=== PATIENT | male | born 1945 | race Caucasian/White ===

== ENCOUNTER → 2018-06-20 | Outpatient (CLI) | payer MEDICARE, OTHER ==
--- NOTE | 2018-06-22 09:01 | PE ---
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 Localization and attenuation correction CT scan was also performed. Small field- of-view images obtained through the head and neck. Correlation to prior CT soft tissue neck 05/29/2018 Head and neck: There is hypermetabolic uptake corresponding to patient's abnormal soft tissue mass wh ich shows SUV of 22. Soft tissue mass is present along the right side of the vallecula, posterior to the hyoid bone and extending medial to the thyroid cartilage causing mass effect on the airway approa [place] the arytenoid cartilage posteriorly. Focus of hypermetabolic uptake is present just to the righ t of the mass superficial to the thyroid cartilage and deep to the sternocleidomastoid muscle, anteri or to the right internal jugular and common carotid artery on the right compatible with nonenlarged l ymph node but showing hypermetabolic uptake at approximately SUV 5.9. The mass measures approximately 2.5 cm in greatest AP dimension and shows somewhat infiltrative appearance with poorly defined eleanor ns. Additional nonenlarged node is present anterior to the sternocleidomastoid muscle at the level of the angle of the mandible on the right measuring SUV 10.1, contralateral node along the anterior cer vical chain immediately anterior to the sternocleidomastoid muscle shows SUV of approximately 4. Acti vity near the base of the tongue on the right thought likely to be physiologic which could be confirm ed with direct visualization. CHEST: Some groundglass density is present in the right upper lobe towards the apex greater than on t he left. Somewhat distended proximal thoracic esophagus shows an air-fluid level present. No evident lung mass. Some basilar atelectatic changes are suspected. No pleural or pericardial effusion. Robbins ry artery calcifications are dense. No mediastinal, axillary, or hilar adenopathy. No suspicious hype rmetabolic uptake. Ascending aorta measures 4.1 cm. Pulmonary artery somewhat prominent, correlate fo r possible pulmonary artery hypertension. Abdomen pelvis: Surgical clips present in the midline in the upper abdomen. There are also clips note d near the head of the pancreas artifact. Partially calcified mass is present in the inferior aspect of the right lobe of the liver measuring approximately 4 cm, no suspicious hypermetabolic uptake is a ssociated. There is no retroperitoneal adenopathy. Dependent high density in the gallbladder compatib le with gallstones. Aorta shows atheromatous change. Postop changes are noted to the bowel. Osseous structures are within normal limits for patient's age. Degenerative disc changes are present in the lower lumbar spine, there is associated facet arthropathy. No suspicious hypermetabolic uptake . Degenerative disc disease, facet arthropathy noted in the cervical spine, there is multilevel darian inal encroachment. IMPRESSION: Findings compatible with patient's history of head and neck carcinoma as described. Indet erminate groundglass opacity noted in the right upper lobe, consider pneumonitis, alveolitis. Indeter minate calcified lesion in the right lobe of the liver shows no associated hypermetabolic uptake. Cho lelithiasis.
== END | disposition home or self-care (01) ==
LOC: RADPETMAIN 12:21
PROVIDERS: ATTEND Radiology Diagnostic Radiology
DX: C32.1 Malignant neoplasm of supraglottis (principal); K80.20 Calculus of gallbladder without cholecystitis without obstruction
CPT/HCPCS: 78815; A9552

== ENCOUNTER 2018-07-03 06:43 | Day surgery (SDC) | payer MEDICARE, OTHER ==
[2018-07-01 14:49] VITALS: BMI 27.6
[~2018-07-03 06:43] MED LIST: LACTATED RINGERS 1,000 ML IV SCH; LIDOCAINE 1% 20 ML VIAL (10MG/ML) FOR IV START INTRADERMA PRN; MIDAZOLAM (PF) 2 MG/2 ML VIAL IV PRN
[2018-07-03] MEDS ORDERED: ceFAZolin 1,000 MG in DEXTROSE/WATER 1 50ML.BAG IVPB STA (07:33)
[2018-07-03 07:45] VITALS: TEMP 98.3
[2018-07-03 07:45] LABS: Glucose,Whole Blood 90 mg/dL (75-99)
[2018-07-03] MEDS ORDERED: PROPOFOL 10 MG/ML 20 ML VIAL IV ONE (08:15)
[2018-07-03] MEDS ORDERED: LIDOCAINE 1% INJ 10MG/ML (20 ML MDV) ONE (08:15)
--- NOTE | 2018-07-03 08:41 | P.PCN ---
Date of Procedure: 07/03/18 Procedure(s) Performed: Brief history: Patient is a 72-year-old pleasant white male, scheduled for an EGD with PEG tube placement today. He was diagnosed with head and neck cancer 2 weeks ago and undergoing chemoradiation therapy that was started 3 days ago. Because of the dysphagia is still for an upper endoscopy with a PEG tube placement today Procedure performed: EGD with PEG tube placement Preoperative diagnosis: IV sedation by anesthesia Procedure: After informed consent was obtained with the patient as well as the family the patient was brought into the endoscopy unit. IV conscious sedation was administered by anesthesia under continuous monitoring. The Olympus GF 160 video endoscope was inserted into the mouth and esophagus intubated without any difficulty and was gradually advanced to the stomach and duodenum. The bulb and second part of the duodenum was visualized which appeared normal. The scope at this time was withdrawn to the stomach adequately insufflated with air. Adequate transillumination was achieved onto the anterior abdominal wall. At the site of adequate transillumination and maximal finger indentation, on the anterior abdominal wall, this area was sterilely prepped and draped. One percent Xylocaine was infiltrated into the skin and a small incision was made. Trocar and cannula was passed through the incision into the stomach cavity. The trocar was removed. Guidewire was passed through the cannula into the stomach cavity which was held by the snare that was passed through the scope. The guidewire along with the scope was gently withdrawn from the stomach esophagus out of the mouth. A 20-[employer] PEG tube was passed over the guidewire and was gently advanced into the mouth and esophagus and stomach. With gentle traction the guidewire along with the PEG tube was pulled from the anterior abdominal wall until the internal bumper appeared to be in secure position. Repeat EGD was performed and the esophagus intubated without any difficulty and was advanced into the stomach. The internal bumper appeared to be in secure position. The visualized portions of the antrum body cardia and fundus of the stomach appeared normal. The esophagus was carefully examined as the scope was gradually being withdrawn which appeared normal. At this time external bumper was placed on the PEG tube closer to the anterior abdominal wall at 3 cm eveline. The patient tolerated the procedure well. Impression: Successful 20[employer] PEG tube placement as described above. Recommendations: Findings of this examination were discussed with the patient's family. The patient will be started on tube feeds tomorrow. Post-PEG tube orders were written. He can be discharged home after recovery. Diet to consult has been placed.
[2018-07-03 09:11] VITALS: BP 126/81; PULSE 84; RESP 16
== END 2018-07-03 10:44 | disposition home or self-care (01) ==
LOC: ORWHC2ENDO 06:43
PROVIDERS: ATTEND Internal Medicine Gastroenterology
DX: R13.10 Dysphagia, unspecified (principal); I10 Essential (primary) hypertension; C76.0 Malignant neoplasm of head, face and neck; E78.5 Hyperlipidemia, unspecified; Z79.82 Long term (current) use of aspirin; Z79.891 Long term (current) use of opiate analgesic; Z79.899 Other long term (current) drug therapy; F17.200 Nicotine dependence, unspecified, uncomplicated
CPT/HCPCS: 43246; J2001; J0690; J2704; B4087

== ENCOUNTER → 2018-11-13 | Outpatient (CLI) | payer MEDICARE ==
--- NOTE | 2018-11-15 12:37 | PE ---
Nuclear medicine PET/CT HISTORY: Malignant neoplasm of head and neck, throat, subsequent Patient received 13.8 mCi F-18 FDG intravenously in delayed scanning performed from the skull base to the mid thighs. Small [id number] images also obtained through the head and neck. Correlation to prior PET/CT 06/20/2018 Head and Neck: The hypermetabolic uptake seen on prior exam is less extensive within the soft tissues of the neck involving the region of the vallecula, portion of the right epiglottis and piriform sinu s, SUV 11.5. The adenopathy in associated hypermetabolic uptake present on previous exam in the right neck is no longer seen. There is uptake seen within the hard palate and soft tissues of the mouth wh ich is more intense and may be due to posttreatment change. There is a lymph node which is not enlarg ed just deep to the sternocleidomastoid muscle on the left at the level of the hyoid bone which show some hypermetabolic uptake, SUV is 5.3. Similar finding was noted on prior exam however SUV in the le ft-sided node is only 4. CHEST: There is no evident lung mass. The groundglass opacity seen on prior exam has improved in the right upper lobe. No pleural or pericardial effusion. Coronary artery calcifications are dense. No me diastinal, axillary, or hilar adenopathy. Small focus of increased uptake present just posterior to t he coretta may be associated with the esophagus and is possibly physiologic, was not seen on prior exa m, SUV 3.3. ABDOMEN: No interval change. Postop changes are present. Multiple gallstones are noted. Calcified foc us in the inferior right lobe of the liver is present. There is a PEG tube in place. No suspicious hy permetabolic uptake. Urinary bladder shows a thickened wall and is not distended. Postop changes are noted to the colon. Prostate shows calcifications. No pelvic adenopathy or suspicious hypermetabolic uptake. Osseous structures: No significant interval change. No suspicious hypermetabolic uptake. IMPRESSION: There is improvement in the distribution and intensity of uptake seen in the patient's ma ss likely due to treatment change. Interval left-sided neck dinora uptake as described and additional findings within the chest.
== END | disposition home or self-care (01) ==
LOC: RADPETMAIN 15:22
PROVIDERS: ATTEND Radiology Diagnostic Radiology
DX: R94.8 Abnormal results of function studies of other organs and systems (principal); C76.0 Malignant neoplasm of head, face and neck
CPT/HCPCS: 78815; A9552

== ENCOUNTER → 2018-12-22 | Outpatient (CLI) | payer MEDICARE ==
[2018-12-22 17:21] LABS: Blood Urea Nitrogen 14 mg/dL (9-20)
--- NOTE | 2018-12-22 22:22 | CT ---
EXAMINATION TYPE: CT soft tissue neck w con DATE OF EXAM: 12/22/2018 HISTORY: neck mass, hx of laryngeal ca COMPARISON: CT neck May 29, 2018. PET/CT November 13, 2018. CT DLP: 567 mGycm. Automated Exposure Control for Dose Reduction was Utilized. TECHNIQUE: CT scan of the neck is performed with IV Contrast, patient injected with 100 mL of Isovue 300, axial images are obtained, coronal and sagittal reformatted images are reviewed. FINDINGS: Airway: There is increasing marked thickening of the soft tissue of the hypopharyngeal airway with fi lling of the left piriform sinus now identified and thickening of the right aryepiglottic fold axial image 37 again seen. Concentric thickening inferior to this with small caliber of the hypopharyngeal airway extending into the proximal trachea is identified just below the hyoid bone near level of fals e vocal cords axial image 41 more prominent from recent comparison studies. Airway distal to this is patent. Parotid/submandibular glands: No gross abnormality seen. Carotid/Vascular Structures: [id number] plaque at bilateral carotid bulbs is redemonstrated. Osseous Structures: There is straightening of spine with moderate disc space narrowing C4-C5 through C6/C7 levels with mild spurring present. Other: There is enlarging left sided neck lymph node from recent PET CT where it was hypermetabolic a xial image 32 now measuring 10 x 10 mm at level of carotid bifurcation. No additional suspicious grea ter than 1 cm lymph nodes are seen. IMPRESSION: Interval neoplastic progression from most recent PET/CT with worsening primary mass likel y bilateral involvement and worsening left-sided neck adenopathy.
== END | disposition home or self-care (01) ==
LOC: RADCTMAIN 16:17
PROVIDERS: ATTEND Otolaryngology
DX: C32.1 Malignant neoplasm of supraglottis (principal); Z92.21 Personal history of antineoplastic chemotherapy
CPT/HCPCS: 82565; 84520; 70491; 36415; Q9967

== ENCOUNTER → 2019-01-09 | Outpatient (CLI) | payer MEDICARE, OTHER ==
--- NOTE | 2019-01-11 13:04 | PE ---
Nuclear medicine PET/CT HISTORY: Supraglottic laryngeal carcinoma, had neck cancer, subsequent Patient received 12.4 mCi F-18 FDG intravenously in delayed scanning was performed from the skull bas e to the mid thighs. Small [id number] images obtained through the neck. Correlation with prior nuc lear medicine PET/CT 11/13/2018, CT soft tissue neck 12/22/2018 Neck and chest: Abnormal hypermetabolic uptake is again noted within the region of the epiglottis, va llecula, right piriform sinus region, SUV is 12.7. The area of abnormal hypermetabolic uptake has pro gressed somewhat in the interval. Additionally the solitary lymph node showing hypermetabolic uptake on prior exam due to the left sternocleidomastoid muscle at the level of the carotid bifurcation on t he left has increased in size and shows a short axis measurement of approximately 11 mm on current ex am is compared to previous exam when it measured 7-8 mm., SUV 12.1 There is no evident lung mass. There is no pleural pericardial effusion. Coronary artery calcificatio ns are dense. ABDOMEN: Dependent high density within the gallbladder compatible with stones. Calcified right-sided liver mass is stable. Metallic density present at the level of the head of the pancreas is again seen . There is a PEG tube in place as on prior. No retroperitoneal adenopathy or ascites. Postop changes are noted to the bowel. Osseous structures are unremarkable. IMPRESSION: Some progression in patient's left neck adenopathy, area of abnormal signal involving the treatment bed.
== END | disposition home or self-care (01) ==
LOC: RADPETMAIN 09:20
PROVIDERS: ATTEND Radiology Radiation Oncology
DX: C32.1 Malignant neoplasm of supraglottis (principal); R59.0 Localized enlarged lymph nodes
CPT/HCPCS: 78815; A9552

== ENCOUNTER → 2019-06-22 | Outpatient (CLI) | payer MEDICARE, OTHER ==
[2019-06-22 09:10] LABS: African American GFR (CKD) >90 (>60 ml/min/1.73 sqM); Blood Urea Nitrogen 14 mg/dL (9-20); Non-African American GFR(CKD) >90 (>60 ml/min/1.73 sqM)
--- NOTE | 2019-06-22 10:43 | CT ---
EXAMINATION TYPE: CT soft tissue neck w con DATE OF EXAM: 06/22/2019 COMPARISON: 01/09/2019, 12/22/2018, and 05/29/2018 HISTORY: 73-year-old male malignant neoplasm supraglottis TECHNIQUE: Contiguous axial scanning of the soft tissues of the neck performed with IV Contrast, sailaja ent injected with 100 mL of Isovue 300. Coronal/sagittal reconstructions performed. CT DLP: 434.8 mGycm Automated exposure control for dose reduction was used. FINDINGS: Visualized intracranial structures show atherosclerotic calcifications within the carotid siphons. Mild mucosal thickening within the bilateral maxillary sinuses. Some trapped fluid within the right m astoid air cells. Orbits and globes are intact. Nasopharynx appears clear. There is new tracheostomy cannula with postsurgical changes of interval laryngectomy. Surgical clips on both sides of the neck with a bilateral neck dissections. Moderate atherosclerotic calcifications left bifurcation mild on the right. No hemodynamically signif icant stenosis at either proximal ICA. Right-sided thyroidectomy. The submandibular glands are atrophic. Parotid glands appear satisfactory. Reticulations throughout the subcutaneous adipose and areas of fascial thickening suggests scarring a nd postradiation therapy change. No discrete mass or lymphadenopathy is identified. Visualized upper chest appears clear. Bones: Moderate spondylotic change. No prevertebral soft tissue swelling or malalignment. IMPRESSION: 1. INTERVAL LARYNGECTOMY WITH TRACHEOSTOMY CANNULA AND BILATERAL NECK DISSECTIONS. 2. RETICULATION THROUGHOUT THE SUBCUTANEOUS ADIPOSE WITH AREAS OF SOFT TISSUE AND FASCIAL THICKENING SUGGEST POSTSURGICAL SCARRING AND RADIATION THERAPY CHANGE. 3. NO SUSPICIOUS MASS OR LYMPHADENOPATHY IS IDENTIFIED. 4. SOME TRAPPED FLUID WITHIN THE RIGHT MASTOID AIR CELLS. CORRELATE FOR ANY MASTOID PAIN TO EXCLUDE M ASTOIDITIS.
== END | disposition home or self-care (01) ==
LOC: RADCTMAIN 08:11
PROVIDERS: ATTEND Otolaryngology
DX: C32.1 Malignant neoplasm of supraglottis (principal); Z90.02 Acquired absence of larynx; Z85.818 Personal history of malignant neoplasm of other sites of lip, oral cavity, and pharynx; Z85.038 Personal history of other malignant neoplasm of large intestine; Z87.891 Personal history of nicotine dependence; Z92.3 Personal history of irradiation
CPT/HCPCS: 36415; 70491; 82565; 84520